=== PATIENT | female | born 1970 | race Caucasian/White ===

== ENCOUNTER 2017-05-14 09:54 | Observation (INO) ==
--- NOTE | 2017-05-14 10:10 | Emergency Department Note ---
Disposition Clinical Impression: Chest pain Qualifiers: Chest pain type: unspecified Qualified Code(s): R07.9 - Chest pain, unspecified Disposition: Admitted As Inpatient Condition: Good Referrals: Rosy Tapia MD [Primary Care Provider] - Forms: ED Satisfaction Letter Time of Disposition: 11:58 Chest Pain HPI - General Chief Complaint: ED Chest Pain Stated Complaint: pain left shoulder/cp Time Seen by Provider: 05/14/17 10:04 Source: patient Mode of arrival: ambulatory Limitations: no limitations Vital Signs Reviewed: Yes Nursing Notes Reviewed: Yes - History of Present Illness HPI Narrative: 46-year-old who comes in complaining of chest pain and pain in her left shoulder blade. Patient states it's been going on for the last couple weeks. Risk factors include mom with coronary artery disease, borderline hypertension. The patient is also on control pills. 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) Pain Location: substernal, left chest Severity scale (1-10): 7 Quality: tightness, aching Pain Radiation: other (Left shoulder blade) Improves with: nothing Worsens with: movement (Movement sometimes makes it worse but not all of time.) Context: other ( control pills) Associated symptoms: Denies: fever, cough, leg swelling Treatments prior to arrival chest pain: none - Related Data Home Medications Medication Instructions Recorded Confirmed ALPRAZolam [Xanax 1 MG Tablet] 1 mg PO Q8H PRN 07/25/15 03/08/17 Lansoprazole [Prevacid] 30 mg PO BID 07/25/15 03/08/17 Norethindrone-E.estradiol-Iron [Lo 1 tab PO DAILY 03/08/17 03/08/17 Loestrin Fe 1-10 Tablet] Previous Rx's Medication Instructions Recorded HYDROcodone/Acet 5/325 mg [[place] 2 tab PO Q4H PRN #10 tab 03/08/17 5-325 mg] Allergies Allergy/AdvReac Type Severity Reaction Status Date / Time Penicillins [PCN] Allergy Rash Verified 05/14/17 09:59 Constitutional: Denies: fever, chills, weakness, weight change Eyes: Denies: eye pain, eye discharge, vision change ENT ED: Denies: ear pain, throat pain, dental pain, hearing loss, epistaxis, congestion, dysphagia Cardiovascular: Reports: chest pain. Denies: palpitations, dyspnea on exertion , edema, syncope Respiratory: Denies: cough, dyspnea, wheezes, hemoptysis, stridor Gastrointestinal: Denies: abdominal pain, nausea, vomiting, diarrhea, constipation, hematemesis, melena, hematochezia Genitourinary: Denies: dysuria, frequency, hematuria, discharge Musculoskeletal: Denies: back pain, neck pain, arthralgia, myalgia Integumentary: Denies: rash, abrasion, lesions Neurological: Denies: headache, weakness, numbness, paresthesias, confusion, abnormal gait, vertigo Psychiatric: Denies: anxiety, depression, suicidal thoughts, homicidal thoughts , auditory hallucinations, visual hallucinations Endocrine: Denies: fatigue Hematological/Lymphatic: Denies: easy bleeding, easy bruising Allergic/Immunologic: Denies: facial swelling, urticaria Chest Pain PMH - Past Medical History Medical history: Reports: GERD, kidney stones Surgical history: Reports: cholecystectomy Psychiatric history: Reports: anxiety COMMERCIAL REPRESENTATIVE history: Reports: no COMMERCIAL REPRESENTATIVE history - Social History Smoking Status: Former smoker Alcohol use: Reports: occasionally Drug use: Reports: none Physical Exam - General Limitations: no limitations General appearance: alert, in no apparent distress - Head Head exam: atraumatic, normocephalic, normal inspection - Eye Eye exam: Present: normal appearance, PERRL, EOMI - ENT ENT exam: normal exam, normal oropharynx, mucous membranes moist - Neck Neck exam: Present: normal inspection, full ROM, trachea midline - Chest Chest inspection: Present: normal inspection, symmetric chest wall rise - Respiratory Respiratory exam: Present: normal lung sounds bilaterally - Cardiovascular Cardiovascular exam: Present: regular rate, normal rhythm, normal heart sounds - Abdominal Exam Abdominal exam: Present: soft, Non-Tender. Absent: tenderness, distention, guarding, rebound, rigidity - Extremities Exam Extremities exam: Present: normal inspection, full ROM. Absent: tenderness, pedal edema - Expanded Lower Extremity Exam Upper leg exam: Absent: tenderness, swelling Lower leg exam: Absent: tenderness, swelling Neurovascular/Tendon exam: Absent: motor deficit, sensory deficit, tendon deficit Gait: observed and normal - Back Exam Back exam: Present: normal inspection, full ROM. Absent: tenderness - Neurological Exam Neurological exam: Present: alert, oriented X3 - Psychiatric Psychiatric exam: Present: normal affect, normal mood - Skin Skin exam: Present: warm, dry, intact, normal color Course - Reevaluation(s) Reevaluation #1: 46-year-old with multiple risk factors comes in complaining of chest pain. Patient is on control pills. CTA of the chest was negative for PE. Time: 11:57 - Consultations Consultation #1: Discussed with . Time: 11:58 Vital Signs Temperature 98.3 F 05/14/17 09:55 Pulse Rate 112 05/14/17 09:55 Respiratory Rate 16 05/14/17 09:55 Blood Pressure 137/84 05/14/17 09:55 O2 Sat by Pulse Oximetry 100 05/14/17 09:55 Temperature 98.3 F 05/14/17 09:55 Pulse Rate 103 05/14/17 10:31 Respiratory Rate 18 05/14/17 10:31 Blood Pressure 155/93 05/14/17 10:31 O2 Sat by Pulse Oximetry 100 05/14/17 10:31 Oxygen Delivery Oxygen Delivery Room Air Chest Pain - Lab Data Result diagrams: 05/14/17 10:30 05/14/17 10:30 Lab Results 05/14/17 05/14/17 05/14/17 Range/Units 10:30 10:30 10:30 WBC 7.1 (4.3-11.1) K/mcL RBC 4.63 (3.82-4.97) M/mcL Hgb 10.2 L (11.5-15.4) g/dL Hct 33.2 L (35.3-44.9) % MCV 71.7 L (83.0-100.0) fL MCH 22.0 L (28.0-33.3) pg MCHC 30.7 L (31.6-35.5) g/dL RDW 16.2 H (11.5-14.5) % Plt Count 431 H (140-400) K/mcL MPV 8.4 L (9.4-12.4) fL Immature Gran % 0.8 (0-4) % Seg Neutrophils % 64.3 % Lymphocytes % 22.2 % Monocytes % 10.4 % Eosinophils % 1.7 % Basophils % 0.6 % Neutrophils # 4.6 (1.6-8.9) K/mcL Lymphocytes # 1.6 (0.6-4.6) K/mcL Monocytes # 0.7 (0.0-1.3) K/mcL Eosinophils # 0.1 (0.0-0.6) K/mcL Basophils # 0.0 (0.0-0.2) K/mcL Immature Plt Fraction 1.3 (1.1-6.1) % PT 11.3 (9.4-12.1) Seconds INR 1.1 APTT 27.7 (26.0-36.0) Seconds Sodium 137 (136-145) mEq/L Potassium 3.8 (3.5-4.5) mEq/L Chloride 106 (98-109) mEq/L Carbon Dioxide 21 (19-29) mEq/L BUN 12 (7-20) mg/dL Creatinine 0.69 (0.57-1.11) mg/dL Est GFR ( Amer) > 60 (> 60) Est GFR (Non-Af Amer) > 60 (> 60) BUN/Creatinine Ratio 17 (6-26) Glucose 88 (70-99) mg/dL Calculated Osmolality 283 (280-300) Calcium 9.1 (8.6-10.8) mg/dL Troponin I (0-0.03) ng/mL 05/14/17 Range/Units 10:30 WBC (4.3-11.1) K/mcL RBC (3.82-4.97) M/mcL Hgb (11.5-15.4) g/dL Hct (35.3-44.9) % MCV (83.0-100.0) fL MCH (28.0-33.3) pg MCHC (31.6-35.5) g/dL RDW (11.5-14.5) % Plt Count (140-400) K/mcL MPV (9.4-12.4) fL Immature Gran % (0-4) % Seg Neutrophils % % Lymphocytes % % Monocytes % % Eosinophils % % Basophils % % Neutrophils # (1.6-8.9) K/mcL Lymphocytes # (0.6-4.6) K/mcL Monocytes # (0.0-1.3) K/mcL Eosinophils # (0.0-0.6) K/mcL Basophils # (0.0-0.2) K/mcL Immature Plt Fraction (1.1-6.1) % PT (9.4-12.1) Seconds INR APTT (26.0-36.0) Seconds Sodium (136-145) mEq/L Potassium (3.5-4.5) mEq/L Chloride (98-109) mEq/L Carbon Dioxide (19-29) mEq/L BUN (7-20) mg/dL Creatinine (0.57-1.11) mg/dL Est GFR ( Amer) (> 60) Est GFR (Non-Af Amer) (> 60) BUN/Creatinine Ratio (6-26) Glucose (70-99) mg/dL Calculated Osmolality (280-300) Calcium (8.6-10.8) mg/dL Troponin I 0.01 (0-0.03) ng/mL - EKG Data EKG attestation: Yes I reviewed and interpreted this EKG. EKG shows normal: sinus rhythm Rate: tachycardia Rhythm: NSR Interpretation: nonspecific ST-T wave changes Heart Score - Score History: Slightly Suspicious EKG: Non Specific repolarisation Disturbance Age: 45-65 Risk Factors: 1-2 risk factors Troponin: Less than normal limit HEART Score Total: 3
[2017-05-14 10:41] LABS: Basophils % 0.6 %; Eosinophils # 0.1 K/mcL (0.0-0.6); Eosinophils % 1.7 %; Hematocrit 33.2 % (35.3-44.9); Hemoglobin 10.2 g/dL (11.5-15.4); Immature Granulocytes % 0.8 % (0-4); Immature Platelets 1.3 % (1.1-6.1); Lymphocytes # 1.6 K/mcL (0.6-4.6); Lymphocytes % 22.2 %; Mean Corpuscular HGB Conc 30.7 g/dL (31.6-35.5); Mean Corpuscular Volume 71.7 fL (83.0-100.0); Mean Platelet Volume 8.4 fL (9.4-12.4); Monocytes # 0.7 K/mcL (0.0-1.3); Monocytes % 10.4 %; Neutrophils # 4.6 K/mcL (1.6-8.9); Platelet Count 431 K/mcL (140-400); Red Blood Count 4.63 M/mcL (3.82-4.97); Red Cell Distribution Width 16.2 % (11.5-14.5); Segmented Neutrophils % 64.3 %
[2017-05-14 10:45] LABS: INR 1.1; Prothrombin Time 11.3 Seconds (9.4-12.1)
[2017-05-14 10:48] LABS: Activated Partial Thrombo Time 27.7 Seconds (26.0-36.0)
[2017-05-14 10:53] LABS: BUN/Creatinine Ratio 17 (6-26); Blood Urea Nitrogen 12 mg/dL (7-20); Calcium 9.1 mg/dL (8.6-10.8); Carbon Dioxide 21 mEq/L (19-29); Chloride 106 mEq/L (98-109); Glucose 88 mg/dL (70-99); Osmolality,Calculated 283 (280-300); Potassium 3.8 mEq/L (3.5-4.5); Sodium 137 mEq/L (136-145); eGFR For African Americans > 60 (> 60); eGFR For Non-African Americans > 60 (> 60)
[2017-05-14] MEDS ORDERED: Naloxone 0.4 MG/ML INJ IVP PRN (12:22)
[2017-05-14] MEDS ORDERED: Acetaminophen 325 MG TABLET PO PRN (12:22)
--- NOTE | 2017-05-14 12:22 | Internal Med History&Physical ---
Date of Encounter: 05/14/17 Time of Encounter: 12:21 Assessment and Plan (1) Chest pain Current visit: Yes Status: Acute 46/female Admitted with left precordial chest pain/epigastric chest pain/left shoulder pain Worsening pain of the left shoulder. Stress echocardiogram: 12/06/2015: Exercise capacity was good, normal left ventricular systolic function, left ventricular ejection fraction 60%. No ECG or echocardiographic evidence of ischemia. Plan: -Admitted as an observation. Chest pain rule out ACS protocol. -Aspirin 81 -We will trend troponins -If troponins are positive then please consider calling cardiology. -The chest pain continues then consider nitroglycerin -I have seen this patient in the emergency room at bed 23 and patient's son at the bedside. - I have discussed the plan with the patient's family member and at the end of the conversation they do not have any questions, concerns, update or recommendations. Qualifiers: Chest pain type: unspecified Qualified Code(s): R07.9 - Chest pain, unspecified (2) Iron deficiency anemia Current visit: No Status: Chronic Iron deficiency anemia: Hemoglobin: 10.2 MCV: 17.7 MCH: 22 Platelet count 531. This picture does represent iron deficiency anemia. Patient had a EGD/colonoscopy was done at [facility] less than a year ago. We need to get the records from the EGD and colonoscopy from the [facility]. 07/18/2016 PATIENT'S VITAMIN B12 WAS 212 WHICH IS DEFINITELY WAS ON THE LOWER SIDE However this patient's picture represents iron deficiency anemia. With that B12 value I asked patient what she able given a B12 supplements. Patient claims that she was not given any B12 supplements. Technically speaking with low B12 she should have macrocytic and hyperchromic picture in spite that she has a hypochromic and microcytic picture. This paradox is difficult to explain unless patient has a thalassemia. Plan: Patient might need a repeat EGD to rule out any Arias's esophagus/any lower esophageal issues in view of her chronic recurrent GERD. Patient is willing to get EGD done in this hospital. Patient will Hematology evaluation Qualifiers: Iron deficiency anemia type: chronic blood loss Qualified Code(s): D50.0 - Iron deficiency anemia secondary to blood loss (chronic) (3) DVT prophylaxis Current visit: Yes Status: Acute SCD Medical decision making: This patient has moderate to severe risk of worsening in spite of being on appropriate medication due to the underlying multiple comorbid conditions Internal Medicine - H&P: HPI Chief complaint: Chest pain Admitted From: Emergency Dept Plans for Post Hospital Care: Home History of present illness: PCP: Dr. Kelsea Tapia Past medical history: Hypertension, Severe GERD, chronic anemia, B12 deficiency , anxiety History of present illness: Patient is complaining of a left-sided precordial chest pain, radiating to the shoulder, spasmodic in nature, worsening with exertion and relieved by rest. Patient complains that the pain is mainly in the shoulder area and it is the worst pain of her life. Patient also complains of occasional epigastric pain. Patient also complains of the epigastric pain gets worse with the food. Patient denies abdominal pain, nausea, vomiting, dizziness or diarrhea. Workup in the emergency room: Basic labs were drawn. CT chest was done to rule out pulmonary embolism and it is negative for any acute pulmonary emboli. reason for admission: Chest pain to rule out ACS. Family history: Noncontributory Past Med Surg Social Fam HX - Past Medical History Medical history: GERD, kidney stones Psychiatric history: anxiety - Past Surgical History Surgical History: cholecystectomy - Social History Smoking Status: Former smoker Smokeless Tobacco Status: No Alcohol use: occasionally Drug use: none Internal Medicine - H&P: Meds ALPRAZolam [Xanax 1 MG Tablet] 1 mg PO Q8H PRN 07/25/15 [History] Lansoprazole [Prevacid] 30 mg PO BID 07/25/15 [History] Norethindrone AC-Eth Estradiol [Microgestin 21 1.5-30 Tab] 1 tab PO DAILY [History] Oxybutynin [Ditropan] 5 mg PO BID 05/14/17 [History] 3 Allergy/AdvReac Type Severity Reaction Status Date / Time Penicillins [PCN] Allergy Rash Verified 05/14/17 09:59 All Systems PM: A 10-system review of systems was performed and is negative for pertinent findings except as documented above in the HPI. - Constitutional Constitutional: no chills, no fever(s), no night sweats - EENT Eyes: no change in vision, no discharge, no pain, no photophobia Ears: no ear discharge, no ear pain, no tinnitus Nose, mouth and throat: no dysphagia, no nasal discharge, no neck pain, no sore throat - Cardiovascular Cardiovascular ROS IM: chest pain, diaphoresis, palpitations, no dyspnea, no lightheadedness, no syncope - Respiratory Respiratory: no cough, no dyspnea, no wheezing, no excessive phlegm production - Gastrointestinal Gastrointestinal: no abdominal pain, no diarrhea, no hematemesis, no hematochezia, no melena, no nausea, no vomiting - Genitourinary Genitourinary: no change in urinary stream, no dysuria, no flank pain, no hematuria - Musculoskeletal Musculoskeletal ROS IM: no numbness, no tingling - Integumentary Integumentary IM: no rash, no unusual bruising - Neurological Neurological ROS: no confusion, no convulsions, no focal weakness, no numbness, no tingling, no tremor(s) - Hematologic/Lymphatic Hematologic/Lymphatic: no easy bruising - Constitutional Vitals: Temp Pulse Resp BP Pulse Ox 98.3 F 103 18 155/93 100 05/14/17 09:55 05/14/17 10:31 05/14/17 10:31 05/14/17 10:31 05/14/17 10:31 General appearance: Present: A&O X 3, pleasant, no acute distress, answers questions appropriately - Head Head exam: Present: atraumatic, normocephalic - Eye Eye exam: Present: PERRL, conjuntiva pink, sclera anicteric Pupils: Present: PERRL - Neck Neck exam general surgery: Present: supple, trachea midline. Absent: lymphadenopathy - Respiratory Respiratory exam: Present: CTAB. Absent: accessory muscle use, rales, rhonchi, wheezes - Cardiovascular Cardiovascular exam: Present: RRR, +S1, +S2. Absent: diastolic murmur, gallop, rubs, systolic murmur - GI/Abdominal GI/Abdominal exam: Present: normal bowel sounds, soft, no peritoneal signs. Absent: distended, tenderness - Extremities Exam Extremities exam: Present: warm, radial pulses palpable and symmetrical. Absent : calf tenderness, cyanotic, pedal edema - Neurological Exam Neurological exam: Present: CN II-XII intact, oriented X3, no focal deficits. Absent: pronater drift, facial droop, speech deficit - Skin Skin exam: Present: dry, intact Internal Med - H&P Results - Labs CBC & Chem 7: 05/14/17 10:30 05/14/17 10:30
[2017-05-14] MEDS ORDERED: ALPRAZolam 1 MG TABLET PO PRN (12:27)
[2017-05-14 19:23] VITALS: BP 123/78
[2017-05-15] MEDS ORDERED: NORETHINDRONE AC ETH ESTRADIOL PO SCH (09:00)
--- NOTE | 2017-05-15 16:31 | Electrocardiograph Report ---
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
== END 2017-05-14 21:00 | disposition left against medical advice (07) ==
LOC: EMEROO 09:54 → 3BNU 09:54
PROVIDERS: ADMIT Internal Medicine; ATTEND Registered Nurse